=== PATIENT | female | born 1985 ===

== ENCOUNTER 2018-01-14 17:27 | Emergency (ER) | payer OTHER ==
[2018-01-14 17:42] VITALS: PULSE 80; RESP 16; TEMP 98.5
[2018-01-14] MEDS ORDERED: Sodium Chloride 0.9% 1,000 ML IV STA (18:10)
[2018-01-14] MEDS ORDERED: DiphenhydrAMINE 50 mg/ml Inj IVP STA (18:10)
--- NOTE | 2018-01-14 18:15 | ED PDOC ---
Arrival/HPI - General Chief Complaint: Headache Time Seen by Provider: 01/14/18 17:55 Historian: Patient - History of Present Illness Narrative History of Present Illness (Text): 01/14/18 18:11 This 33 yo female with pmh migraines, presents to this ED c/o headaches with nausea x 3 days. Patient stated symptoms is similar to her chronic migraines. Patient stated she was seen at [facility] x 3 months ago for same complains. She stated she had a CT head scan which was normal. Patient was given a prescription for pain medication as discharged home. Patient stated she did not follow up with her doctor for her headaches. Patient denies other complains. Denies fever, sob, cp, photophobia, neck stiffness, dizziness, skin rash, cms, vomiting, abdominal pain, urinary symptoms, or abnormal gait. Time/Duration: < week Context: Home Past Medical History - Provider Review Nursing Documentation Reviewed: Yes - Cardiac Hx Cardiac Disorders: No - Pulmonary Hx Respiratory Disorders: No - Neurological Hx Neurological Disorder: Yes Hx Migraine: Yes - HEENT Hx HEENT Disorder: No - Renal Hx Renal Disorder: No - Endocrine/Metabolic Hx Endocrine Disorders: No - Hematological/Oncological Hx Blood Disorders: No - Integumentary Hx Dermatological Disorder: No - Musculoskeletal/Rheumatological Hx Musculoskeletal Disorders: No - Gastrointestinal Hx Gastrointestinal Disorders: No - Genitourinary/Gynecological Hx Genitourinary Disorders: No - Psychiatric Hx Psychophysiologic Disorder: No Hx Substance Use: No Family/Social History - Physician Review Nursing Documentation Reviewed: Yes Family/Social History: Other (noncontributory) Smoking Status: Never Smoked Hx Alcohol Use: No Hx Substance Use: No Allergies/Home Meds Allergies/Adverse Reactions: Allergies No Known Allergies Allergy (Verified 01/14/18 17:37) Review of Systems - Review of Systems Constitutional: Normal. absent: Fatigue, Weight Change, Fevers Eyes: Normal ENT: Normal. absent: Sore Throat, Rhinorrhea Respiratory: Normal. absent: SOB, Cough Cardiovascular: Normal. absent: Chest Pain, Palpitations Gastrointestinal: Normal. absent: Abdominal Pain, Nausea, Vomiting Genitourinary Female: Normal. absent: Dysuria, Frequency, Hematuria, Vaginal Bleeding, Vaginal Discharge Musculoskeletal: Normal. absent: Back Pain, Neck Pain, Joint Swelling, Myalgias Skin: Normal. absent: Rash Neurological: Headache. absent: Dizziness, Focal Weakness, Gait Changes, Speech Changes, Facial Droop, Disequilibrium, Seizure Endocrine: Normal Hemo/Lymphatic: Normal Psychiatric: Normal Physical Exam Vital Signs Temp Pulse Resp BP Pulse Ox 01/14/18 17:37 98.5 F 80 16 119/84 95 Temperature: Afebrile Blood Pressure: Normal Pulse: Regular Respiratory Rate: Normal Appearance: Positive for: Well-Appearing, Non-Toxic, Comfortable Pain Distress: None Mental Status: Positive for: Alert and Oriented X 3 - Systems Exam Head: Present: Atraumatic, Normocephalic Pupils: Present: PERRL Extroacular Muscles: Present: EOMI Conjunctiva: Present: Normal Mouth: Present: Moist Mucous Membranes Neck: Present: Normal Range of Motion Respiratory/Chest: Present: Clear to Auscultation, Good Air Exchange. No: Respiratory Distress, Accessory Muscle Use Cardiovascular: Present: Regular Rate and Rhythm, Normal S1, S2. No: Murmurs Abdomen: Present: Normal Bowel Sounds. No: Tenderness, Distention, Peritoneal Signs Back: Present: Normal Inspection Upper Extremity: Present: Normal Inspection. No: Cyanosis, Edema Lower Extremity: Present: Normal Inspection. No: Edema Neurological: Present: GCS=15, CN II-XII Intact, Speech Normal, Motor Func Grossly Intact, Normal Sensory Function, Normal Cerebellar Funct, Gait Normal, Memory Normal Skin: Present: Warm, Dry, Normal Color. No: Rashes Psychiatric: Present: Alert, Oriented x 3, Normal Insight, Normal Concentration Medical Decision Making ED Course and Treatment: 01/14/18 19:56 Re-evaluation. Patient feels better. Discussed results and plan with patient who expresses understanding. All questions answered and there is agreement with the plan to discharge home with instructions. Patient stable for discharge. Return if symptoms persist or worsen. Patient denies GILL or nausea at this time. Patient has a normal speech, and gait. No neuro focal deficits found. Patient was recommended to f/u clinic Re-evaluation Time: 19:57 Reassessment Condition: Re-examined, Improved - Medication Orders Current Medication Orders: Discontinued Medications Diphenhydramine HCl (Benadryl) 25 mg IVP STAT STA Stop: 01/14/18 18:11 Last Admin: 01/14/18 18:59 Dose: 25 mg IVP Administration Document 01/14/18 18:59 HI (Rec: 01/14/18 18:[id number]) Charges for Administration # of IVP Administrations 1 Sodium Chloride (Sodium Chloride 0.9%) 1,000 mls @ 999 mls/hr IV .Q1H1M STA Stop: 01/14/18 19:10 Last Admin: 01/14/18 18:59 Dose: 999 mls/hr eMAR Start Stop Document 01/14/18 18:59 HI (Rec: 01/14/18 18:[id number]) Intravenous Solution Start Date 01/14/18 Start Time 18:59 Ketorolac Tromethamine (Toradol) 30 mg IVP STAT STA Stop: 01/14/18 18:11 Last Admin: 01/14/18 18:58 Dose: 30 mg MAR Pain Assessment Document 01/14/18 18:58 HI (Rec: 01/14/18 18:[id number]) Pain Reassessment Is this a pain reassessment? No IVP Administration Document 01/14/18 18:58 HI (Rec: 01/14/18 18:[id number]) Charges for Administration # of IVP Administrations 1 Metoclopramide HCl (Reglan) 10 mg IVP STAT STA Stop: 01/14/18 18:11 Last Admin: 01/14/18 18:59 Dose: 10 mg IVP Administration Document 01/14/18 18:59 HI (Rec: 01/14/18 18:59 [place] [id number]) Charges for Administration # of IVP Administrations 1 Disposition/Present on Arrival - Present on Arrival Any Indicators Present on Arrival: No History of DVT/PE: No History of Uncontrolled Diabetes: No Urinary Catheter: No History of Decub. Ulcer: No History Surgical Site Infection Following: None - Disposition Have Diagnosis and Disposition been Completed?: Yes Diagnosis: Headache Disposition: HOME/ ROUTINE Disposition Time: 19:57 Patient Plan: Discharge Patient Problems: Current Active Problems Problem Status Onset Headache Acute Condition: IMPROVED Discharge Instructions (ExitCare): Headache, Adult Print Language: QATARI Additional Instructions: Llame a la clinica para un seguimiento medico esta semana. Tiene que applicar para el [facility], para evitar gastos por consulta medica. Trate de dormir 8 horas diarias, and evite cafe, te, or bebinas cafeinadas. [place] medicina con comida. Rgrese a la emergencia si dolor de larisa retorna. Lame a neurologo, Dr. Boland si dolor de larisa persiste o retorna Prescriptions: Famotidine [Pepcid] 40 mg PO DAILY #10 tablet Naproxen 500 mg PO BID PRN #14 tablet PRN Reason: Pain, Severe (8-10) Referrals: [facility] [Outside] - Follow up with primary [facility] [Outside] - Follow up with primary Ben Boland MD [Staff Provider] - Follow up with primary Forms: [employer] ([place])
[2018-01-14 20:44] VITALS: BP 109/87; O2SAT 96
== END 2018-01-14 20:43 | disposition home or self-care (01) ==
LOC: ED 17:27
DX: R51 Headache (principal)
CPT/HCPCS: 81025; 96374; 96375; 99285; J1200; J1885; J2765; J7040